=== PATIENT | female | born 1960 | race Caucasian/White ===

== ENCOUNTER → 2020-07-22 | Day surgery (SDC) | payer MEDICARE, OTHER ==
[~2020-07-22] MED LIST: AMITIZA8 MCG PO; ANTIVERT25 MG PO; ASCORBIC ACID500 MG PO; AZELASTINE205.5 MCG/; CETIRIZINE HCL10 MG PO; CLONAZEPAM1 MG PO; DULOXETINE HCL30 MG PO; ESTROGEN-METHY1 EAC2 PO; FIORICET1 EACH PO; FLOMAX0.4 MG PO; FLONASE ALLER15.8 ML; HYDROCODON-ACE1 EAC2 PO; ILOTYCIN1 GM OS; LEVOTHYROXINE112 MCG PO; LIPITOR40 MG PO; METFORMIN HCL500 MG PO; NORCO 7.5-3251 EACH PO; OMEPRAZOLE40 MG PO; PERCOCET 5-3251 EACH PO; PROAIR HFA8.5 GM INH; PROLIA60 MG/1 ML IM; SIMVASTATIN40 MG PO; SINGULAIR10 MG PO; SYMBICORT 80-10.2 GM INH; TREXIMET 85-501 EACH PO; VALACYCLOVIR1000 MG PO; VITAMIN D325 MCG PO; WELLBUTRIN XL150 MG PO; WOMEN'S 50 PLU1 EACH PO; ZOFRAN4 MG PO
[2020-07-22 09:59] LABS: BUN/CREAT RATIO (CALC) 24.3 RATIO; CREATININE 0.7 mg/dL (0.51-0.95); POTASSIUM 4.4 mmol/L (3.5-5.1)
== END | disposition home or self-care (01) ==
LOC: FAS 08:19
PROVIDERS: Anesthesiology
DX: N60.31 Fibrosclerosis of right breast (principal); D24.1 Benign neoplasm of right breast; E11.9 Type 2 diabetes mellitus without complications; R92.8 Other abnormal and inconclusive findings on diagnostic imaging of breast; J45.909 Unspecified asthma, uncomplicated; F32.9 Major depressive disorder, single episode, unspecified; G47.30 Sleep apnea, unspecified; E78.00 Pure hypercholesterolemia, unspecified; E03.9 Hypothyroidism, unspecified; L40.9 Psoriasis, unspecified; Z98.890 Other specified postprocedural states; Z20.822 Contact with and (suspected) exposure to COVID-19; K21.9 Gastro-esophageal reflux disease without esophagitis; K58.9 Irritable bowel syndrome, unspecified; Z79.84 Long term (current) use of oral hypoglycemic drugs
CPT/HCPCS: 36415; 76098; 77065; 80048; 88305; J1100; J1170; J1885; J2250; J2405; J2704; J3010; J7120

== ENCOUNTER 2021-10-29 16:52 | Emergency (ER) | payer MEDICARE, OTHER ==
[2021-10-29 17:49] LABS: BASOPHIL 0.4 % (0-2); EOSINOPHIL 1.3 % (0-5); HCT 44.1 % (37.0-47.0); HGB 14.6 g/dl (12.5-16.0); LYMPHOCYTE 33.7 % (15-48); MCH 30.1 pg (25.0-31.0); MCHC 33.1 g/dL (32.0-36.0); MCV 90.9 fL (78.0-100.0); MONOCYTE 9.8 % (0-12); MPV 9.3 fL (6.0-9.5); NEUTROPHIL 54.4 % (41-80); NRBC 0; PLT 372 K/uL (150-400); RBC 4.85 M/uL (4.20-5.40); RDW 13.3 % (11.5-14.0)
[2021-10-29 17:49] LABS: BILIRUBIN NEGATIVE (NEGATIVE); BLOOD NEGATIVE Ery/uL (NEGATIVE); CLARITY CLEAR (CLEAR); COLOR YELLOW (YELLOW); GLUCOSE (U) NORMAL (NORMAL); LEUKOCYTES NEGATIVE Leu/uL (NEGATIVE); NITRITE NEGATIVE (NEGATIVE); PROTEIN NEGATIVE (NEGATIVE); SPECIFIC GRAVITY >=1.030 (1.001-1.030); UROBILINOGEN 0.2 mg/dL (0.2-1.0); pH 5.5 (5.0-9.0)
[2021-10-29 18:03] LABS: ALBUMIN 3.9 g/dL (3.4-5.0); BILIRUBIN - TOTAL 0.3 mg/dL (0.2-1.0); BUN/CREAT RATIO (CALC) 18.1 RATIO; CREATININE 0.83 mg/dL (0.51-0.95); GLOBULIN (CALCULATION) 2.7 g/dL; POTASSIUM 4.5 mmol/L (3.5-5.1); TOTAL PROTEIN 6.6 g/dL (6.4-8.2)
[2021-10-29] MEDS ORDERED: PREDNISONE50 MG PO (19:24)
[2021-10-29] MEDS ORDERED: ONDANSETRON ODT4 MG PO (19:24)
== END 2021-10-29 19:20 | disposition home or self-care (01) ==
LOC: FER 16:52
PROVIDERS: Physician Assistant Medical
DX: R51.9 Headache, unspecified (principal); E11.9 Type 2 diabetes mellitus without complications; J45.909 Unspecified asthma, uncomplicated; Z79.84 Long term (current) use of oral hypoglycemic drugs; Z88.2 Allergy status to sulfonamides
CPT/HCPCS: 36415; 70450; 80053; 81003; 85025; J1885; J7512

== ENCOUNTER → 2021-12-09 | Day surgery (SDC) | payer MEDICARE, OTHER ==
[~2021-12-09] VITALS: Ht 160 cm; Wt 61.7 kg
[~2021-12-09] MED LIST changes: +BUDESONIDE-FO10.2 G1 PO; +ONDANSETRON ODT4 MG PO; +PREDNISONE50 MG PO; +STOOL SOFTENER100 M1 PO; +ZYRTEC10 M3 PO
== END | disposition home or self-care (01) ==
LOC: FAS 11-24 09:30
DX: Z12.11 Encounter for screening for malignant neoplasm of colon (principal); K21.9 Gastro-esophageal reflux disease without esophagitis; K44.9 Diaphragmatic hernia without obstruction or gangrene; E11.9 Type 2 diabetes mellitus without complications; J45.909 Unspecified asthma, uncomplicated; F41.9 Anxiety disorder, unspecified; M19.90 Unspecified osteoarthritis, unspecified site; Z79.899 Other long term (current) drug therapy; Z90.49 Acquired absence of other specified parts of digestive tract; Z72.89 Other problems related to lifestyle
CPT/HCPCS: 43235; G0121; J2250; J2405; J2704; J7120